=== PATIENT | female | born 1950 | race Caucasian/White ===

== ENCOUNTER 2016-10-14 08:47 | Emergency (ER) | payer MEDICARE, OTHER ==
[2016-10-14 09:07] VITALS: BP 135/103
--- NOTE | 2016-10-14 09:10 | EDM.PDOC ---
ED HPI GENERAL MEDICAL PROBLEM - General Chief Complaint: Lower Extremity Injury/Pain Stated Complaint: RT HIP OUT OF WACK Time Seen by Provider: 10/14/16 09:09 Source of Information: Reports: Patient History Limitations: Reports: No Limitations - History of Present Illness INITIAL COMMENTS - FREE TEXT/NARRATIVE: 66 yo white female c/o right side (Pelvis/Hip) pain since last night w/o trauma. Patient states pain radiates down to knee Onset Date: 10/13/16 Onset Time: 13:00 Duration: Hour(s): Location: Reports: Pelvis, Lower Extremity, Right Quality: Reports: Ache Severity: Moderate Improves with: Reports: Immobilization Worsens with: Reports: Movement Associated Symptoms: Reports: No Other Symptoms Right Hip Pain Score (Numeric/FACES): 9 - Related Data Allergies Allergy/AdvReac Type Severity Reaction Status Date / Time Penicillins Allergy Hives Verified 10/14/16 08:55 Home Meds: Home Meds Glimepiride [Amaryl] 8 mg PO DAILY 10/14/16 [History] Insulin Glarg,Human.Rec.Analog [LantUS Solostar] 48 units SUBCUT BEDTIME [History] Losartan [Cozaar] 100 mg PO DAILY 10/14/16 [History] atorvaSTATin [Lipitor] 40 mg PO BEDTIME 10/14/16 [History] metFORMIN [Glucophage] 1,000 mg PO BIDMEALS 10/14/16 [History] Past Medical History HEENT History: Reports: Impaired Vision Cardiovascular History: Reports: High Cholesterol, Hypertension [employer] History: Reports: Endocrine/Metabolic History: Reports: Diabetes, Type II - Infectious Disease History Infectious Disease History: Reports: Chicken Pox, Shingles - Past Surgical History Female Surgical History: Reports: Tubal Ligation Social & Family History - Family History Family Medical History: Noncontributory - Tobacco Use Smoking Status *Q: Never Smoker Second Hand Smoke Exposure: No - Caffeine Use Caffeine Use: Reports: Coffee - Recreational Drug Use Recreational Drug Use: No Review of Systems - Review of Systems Review Of Systems: See Below Constitutional: Reports: No Symptoms Eyes: Reports: No Symptoms Ears: Reports: No Symptoms Nose: Reports: No Symptoms Mouth/Throat: Reports: No Symptoms Respiratory: Reports: No Symptoms Cardiovascular: Reports: No Symptoms GI/Abdominal: Reports: No Symptoms Genitourinary: Reports: No Symptoms Musculoskeletal: Reports: No Symptoms Skin: Reports: No Symptoms Neurological: Reports: No Symptoms Psychiatric: Reports: No Symptoms ED EXAM, GENERAL - Physical Exam Exam: See Below Exam Limited By: No Limitations General Appearance: Alert, No Apparent Distress Eye Exam: Bilateral Eye: EOMI Ears: Normal External Exam Ear Exam: Bilateral Ear: TM normal Nose: Normal Inspection Throat/Mouth: Normal Inspection Head: Atraumatic Neck: Normal Inspection Respiratory/Chest: No Respiratory Distress Cardiovascular: Normal Peripheral Pulses Peripheral Pulses: 2+: Popliteal (L), Popliteal (R) Back Exam: Normal Inspection, Other (right low back tenderness and in area of right lateral hip) Extremities: Normal Inspection Neurological: Alert, Oriented, CN II-XII Intact, Normal Cognition, Sensory/ Motor Deficit (tingling down to right knee) Psychiatric: Normal Affect Skin Exam: Warm Lymphatic: No Adenopathy Course - Vital Signs Last Recorded V/S: Last Vital Signs Temp 36.3 C 10/14/16 09:06 Pulse 91 10/14/16 09:06 Resp 18 10/14/16 09:06 BP 135/103 H 10/14/16 09:06 Pulse Ox 99 10/14/16 09:06 - Orders/Labs/Meds Orders: Active Orders 24 hr Category Date Time Status Lumbar Spine 2 or 3V [CR] Urgent Exams 10/14/16 09:09 Taken Lumbar Spine wo Cont [CT] Urgent Exams 10/14/16 09:56 Ordered Pelvis wo Cont [CT] Urgent Exams 10/14/16 11:35 Taken Sodium Chloride 0.9% [Normal Saline] 1,000 ml Med 10/14/16 10:00 Active IV ASDIRECTED Medication Orders Sodium Chloride (Normal Saline) 1,000 mls @ 125 mls/hr IV ASDIRECTED SAMIR Last Admin: 10/14/16 10:05 Dose: 125 mls/hr Meds: Medications Generic Name Dose Route Start Last Admin Trade Name Freq PRN Reason Stop Dose Admin Sodium Chloride 1,000 mls @ 125 mls/hr 10/14/16 10:00 10/14/16 10:05 Normal Saline IV 125 mls/hr ASDIRECTED SAMIR Administration Discontinued Medications Generic Name Dose Route Start Last Admin Trade Name Freq PRN Reason Stop Dose Admin Cyclobenzaprine HCl 10 mg 10/14/16 09:13 10/14/16 09:19 Flexeril PO 10/14/16 09:14 10 mg ONETIME ONE Administration Hydromorphone HCl 1 mg 10/14/16 09:56 10/14/16 10:06 Dilaudid IVPUSH 10/14/16 09:57 1 mg ONETIME ONE Administration Hydromorphone HCl 1 mg 10/14/16 12:07 10/14/16 12:12 Dilaudid IVPUSH 10/14/16 12:08 1 mg ONETIME ONE Administration Ondansetron HCl 8 mg/ Sodium 54 mls @ 200 mls/hr 10/14/16 10:22 10/14/16 10: 28 Chloride IV 10/14/16 10:38 200 mls/hr ONETIME ONE Administration Ibuprofen 600 mg 10/14/16 09:13 10/14/16 09:19 Motrin PO 10/14/16 09:14 600 mg ONETIME ONE Administration Promethazine HCl 25 mg 10/14/16 11:12 10/14/16 11:25 Phenergan IM 10/14/16 11:13 25 mg ONETIME ONE Administration - Re-Assessments/Exams Free Text/Narrative Re-Assessment/Exam: 10/14/16 12:39 The findings discussed with patient and (Don). Advise to rest , take medications and f/u w/ Dr. Rodriguez for re-evaluation and Schedule MRI. Departure - Departure Time of Disposition: 12:39 Disposition: Home, Self-Care 01 Condition: Fair Clinical Impression: DDD (degenerative disc disease), lumbar, Lumbar radiculopathy, right - Discharge Information Forms: ED Department Discharge Additional Instructions: Rest Take Medications as prescribed NO LIFTING, NO PUSHING AND NO PULLING F/F w/ your PCP for re-evaluation and schedule MRI of Lumbar Spine - My Orders Last 24 Hours: My Active Orders 10/14/16 09:09 Lumbar Spine 2 or 3V [CR] Urgent 10/14/16 09:56 Lumbar Spine wo Cont [CT] Urgent 10/14/16 10:00 Sodium Chloride 0.9% [Normal Saline] 1,000 ml IV ASDIRECTED 10/14/16 11:35 Pelvis wo Cont [CT] Urgent - Assessment/Plan Last 24 Hours: My Active Orders 10/14/16 09:09 Lumbar Spine 2 or 3V [CR] Urgent 10/14/16 09:56 Lumbar Spine wo Cont [CT] Urgent 10/14/16 10:00 Sodium Chloride 0.9% [Normal Saline] 1,000 ml IV ASDIRECTED 10/14/16 11:35 Pelvis wo Cont [CT] Urgent
[2016-10-14] MEDS ORDERED: Ibuprofen 600 MG Tab PO ONE (09:13)
[2016-10-14] MEDS ORDERED: Cyclobenzaprine 10 MG Tab PO ONE (09:13)
[2016-10-14] MEDS ORDERED: HYDROmorphone 1 MG/ML Syringe IVPUSH ONE ×2 (09:56→12:07)
[2016-10-14] MEDS ORDERED: Sodium Chloride 0.9% 1,000 ML IV SCH (10:00)
[2016-10-14] MEDS ORDERED: Ondansetron 8 MG in Sodium Chloride 0.9% 50 ML IV ONE (10:22)
[2016-10-14] MEDS ORDERED: Promethazine 25 MG/ML SDV IM ONE ×2 (11:12→12:55)
== END 2016-10-14 13:12 | disposition home or self-care (01) ==
LOC: DL.ED 08:47
DX: M51.16 Intervertebral disc disorders with radiculopathy, lumbar region (principal); E78.00 Pure hypercholesterolemia, unspecified; I10 Essential (primary) hypertension; E11.9 Type 2 diabetes mellitus without complications; Z79.899 Other long term (current) drug therapy; Z98.51 Tubal ligation status; Z88.0 Allergy status to penicillin; Z79.4 Long term (current) use of insulin; Z79.84 Long term (current) use of oral hypoglycemic drugs
CPT/HCPCS: 72100; 72131; 96361; 96372; 96374; 96375; 99284; A9270; J1170; J2405; J2550; J7030; J7050

== ENCOUNTER 2016-12-26 11:52 | Emergency (ER) | payer MEDICARE, OTHER ==
[2016-12-26 12:18] VITALS: BP 223/89
[2016-12-26 12:40] LABS: CHLORIDE,CL 98 mmol/L (101-111); SODIUM,NA 136 mmol/L (135-145)
--- NOTE | 2016-12-26 22:35 | EKG ---
12/26/2016 - [facility] JACOBO ANN - TIME: 12:18 p.m. EKG shows normal sinus rhythm. [facility] /[id number]
== END 2016-12-26 13:33 | disposition home or self-care (01) ==
LOC: DL.ED 11:52
DX: I10 Essential (primary) hypertension (principal); F41.9 Anxiety disorder, unspecified; E11.9 Type 2 diabetes mellitus without complications
CPT/HCPCS: 36415; 80053; 84484; 85025; 93005; 93010; 99284

== ENCOUNTER 2020-02-10 05:45 | Day surgery (SDC) | payer MEDICARE, OTHER ==
[2020-02-10] MEDS ORDERED: fentaNYL 100 MCG/2 ML SDV IV ONE ×4 (05:46→07:16)
[2020-02-10] MEDS ORDERED: Midazolam 1 MG/ML 2 ML SDV IV ONE ×7 (05:46→07:15)
[2020-02-10] MEDS ORDERED: Midazolam 1 MG/ML 2 ML SDV ONE (06:16)
[2020-02-10] MEDS ORDERED: fentaNYL 100 MCG/2 ML SDV ONE (06:18)
[2020-02-10] MEDS ORDERED: Dextrose 5%-0.45% NaCl 1,000 ML IV SCH (06:45)
[2020-02-10 09:39] VITALS: BP 138/75; PULSE 93
--- NOTE | 2020-02-10 13:30 | OR ---
DATE: 02/10/2020 PROCEDURE: Total colonoscopy and cold snare polypectomy. INSTRUMENT USED: PCF-H190DL Olympus video colonoscope. PREMEDICATIONS: Fentanyl 125 mcg intravenous, Versed 4 mg intravenous. Nasal O2 cannula. The procedure was done under pulse oximetry, BP recording, and monitoring coordinator. INDICATION: The patient with Hemoccult positive stools. Colonoscopic examination is done for detection of any polypoid lesions and removal, endoscopic hemostasis therapy if needed. DESCRIPTION OF PROCEDURE: Initial rectal exam was unremarkable. Rigid anoscopy was normal. The colonoscope was passed with ease. Numerous scattered diverticula were noted, more so in the distal left colon along with deformity. The scope was passed up to the ileocecal area. Photographs were taken of the normal-appearing cecum identified by landmarks of appendiceal orifice and double- bulged ileocecal folds. No bleeding was noted from any of the visualized areas at the commencement of the examination. Bowel preparation was found to be adequate. Grahn scale 2 in the all regions, total score 6. In the distal descending colon, just less than 1 cm sized partially sessile benign-appearing polyp was noted, photograph was taken, cold snare polypectomy was done, the tissues were sent for histopathology. No stricture. No vascular ectasia. No large isolated ulcerations seen. No evidence of diffuse inflammatory bowel disease in the form of friability, contact bleeding, or ulcerations. Probing the proximal sides of folds and flexures using adequate distention and clearing up the stool material withdrawal of the scope was made. No bleeding was noted from any of the visualized areas at the completion of examination. IMPRESSION: 1. Descending colon polyp. 2. Diverticulosis. The patient tolerated the procedure well. [facility] /[id number]
== END 2020-02-10 09:50 | disposition home or self-care (01) ==
LOC: DL.ENDO 05:45
PROVIDERS: ATTEND Internal Medicine Gastroenterology
DX: D12.4 Benign neoplasm of descending colon (principal); K57.30 Diverticulosis of large intestine without perforation or abscess without bleeding; E66.09 Other obesity due to excess calories; E11.9 Type 2 diabetes mellitus without complications; I10 Essential (primary) hypertension; E78.5 Hyperlipidemia, unspecified; Z98.890 Other specified postprocedural states; Z88.0 Allergy status to penicillin; Z79.899 Other long term (current) drug therapy; Z68.37 Body mass index [BMI] 37.0-37.9, adult
CPT/HCPCS: 36415; 45385; 82607; 82746; 83540; 83550; J2250; J3010; J7042

== ENCOUNTER 2021-06-26 12:44 | Emergency (ER) | payer MEDICARE, OTHER ==
[2021-06-26 13:46] VITALS: BP 188/71; PULSE 93
[2021-06-26 14:33] LABS: ANION GAP 13.1 mEq/L (7-13)
[2021-06-26] MEDS ORDERED: methylPREDNISolone Sodium Succinate 125 MG/2 ML SDV IM ONE (15:56)
[2021-06-26] MEDS ORDERED: Acetaminophen/HYDROcodone 325-5 MG Tab PO ONE (15:57)
== END 2021-06-26 16:38 | disposition home or self-care (01) ==
LOC: DL.ED 12:44
DX: S16.1XXA Strain of muscle, fascia and tendon at neck level, initial encounter (principal); M77.9 Enthesopathy, unspecified; E78.00 Pure hypercholesterolemia, unspecified; I10 Essential (primary) hypertension; K21.9 Gastro-esophageal reflux disease without esophagitis; E11.9 Type 2 diabetes mellitus without complications; E66.9 Obesity, unspecified; Z88.0 Allergy status to penicillin; Z79.82 Long term (current) use of aspirin; Z79.899 Other long term (current) drug therapy; Z68.36 Body mass index [BMI] 36.0-36.9, adult
CPT/HCPCS: 36415; 72125; 80053; 83605; 84484; 85025; 93005; 93010; 96372; 99283; 99284-25; A9270-GY; J2930

== ENCOUNTER 2022-07-17 06:30 | Day surgery (SDC) | payer MEDICARE, OTHER ==
[~2022-07-17 06:30] MED LIST: Dextrose 5%-0.45% NaCl 1,000 ML IV SCH; Midazolam 1 MG/ML 2 ML SDV ONE; Sodium Chloride 0.9% 10 ML Syringe FLUSH PRN; Sodium Chloride 0.9% 10 ML Syringe FLUSH SCH; fentaNYL 100 MCG/2 ML SDV ONE
[2022-07-17] MEDS ORDERED: fentaNYL 100 MCG/2 ML SDV IV ONE ×5 (07:43→08:03)
[2022-07-17] MEDS ORDERED: Midazolam 1 MG/ML 2 ML SDV IV ONE ×6 (07:44→07:56)
[2022-07-17 11:16] VITALS: BP 124/45; PULSE 84
== END 2022-07-17 10:35 | disposition home or self-care (01) ==
LOC: DL.ENDO 06:30
PROVIDERS: ATTEND Internal Medicine Gastroenterology
DX: Z12.11 Encounter for screening for malignant neoplasm of colon (principal); D12.4 Benign neoplasm of descending colon; D50.9 Iron deficiency anemia, unspecified; K57.30 Diverticulosis of large intestine without perforation or abscess without bleeding; E66.09 Other obesity due to excess calories; E11.9 Type 2 diabetes mellitus without complications; I10 Essential (primary) hypertension; E78.5 Hyperlipidemia, unspecified; I73.9 Peripheral vascular disease, unspecified; Z88.0 Allergy status to penicillin; Z86.010 Personal history of colon polyps; Z68.35 Body mass index [BMI] 35.0-35.9, adult
CPT/HCPCS: 45385; 88305; J2250; J3010; J7042

== ENCOUNTER 2022-07-26 05:56 | Day surgery (SDC) | payer MEDICARE, OTHER ==
[~2022-07-26 05:56] MED LIST changes: -Dextrose 5%-0.45% NaCl 1,000 ML IV SCH; -Midazolam 1 MG/ML 2 ML SDV ONE; -fentaNYL 100 MCG/2 ML SDV ONE
[2022-07-26] MEDS ORDERED: fentaNYL 100 MCG/2 ML SDV IV ONE ×3 (05:57→06:53)
[2022-07-26] MEDS ORDERED: Midazolam 1 MG/ML 2 ML SDV IV ONE ×3 (05:57→06:54)
[2022-07-26] MEDS ORDERED: Dextrose 5%-0.45% NaCl 1,000 ML IV SCH (06:00)
[2022-07-26] MEDS ORDERED: Midazolam 1 MG/ML 2 ML SDV ONE (06:40)
[2022-07-26] MEDS ORDERED: fentaNYL 100 MCG/2 ML SDV ONE (06:41)
[2022-07-26 08:47] VITALS: BP 154/58; PULSE 81
== END 2022-07-26 08:55 | disposition home or self-care (01) ==
LOC: DL.ENDO 05:56
PROVIDERS: ATTEND Internal Medicine Gastroenterology
DX: K29.50 Unspecified chronic gastritis without bleeding (principal); K21.9 Gastro-esophageal reflux disease without esophagitis; D64.9 Anemia, unspecified; E66.09 Other obesity due to excess calories; E11.9 Type 2 diabetes mellitus without complications; I10 Essential (primary) hypertension; E78.5 Hyperlipidemia, unspecified; L93.0 Discoid lupus erythematosus; K57.30 Diverticulosis of large intestine without perforation or abscess without bleeding; I73.9 Peripheral vascular disease, unspecified; Z68.35 Body mass index [BMI] 35.0-35.9, adult; Z89.429 Acquired absence of other toe(s), unspecified side; Z98.51 Tubal ligation status; Z88.0 Allergy status to penicillin; Z80.0 Family history of malignant neoplasm of digestive organs; Z79.82 Long term (current) use of aspirin; Z86.010 Personal history of colon polyps; Z79.899 Other long term (current) drug therapy
CPT/HCPCS: 43239; 87077; J2250; J3010; J7042; 88305; 88312; 88342